=== PATIENT | male | born 1980 | race Two or more races ===

== ENCOUNTER 2024-02-29 09:46 | Day surgery (SDC) | payer BC ==
[2024-02-29] MEDS ORDERED: Propofol 200 MG/20 ML SDV IV ONE (09:47)
[2024-02-29] MEDS ORDERED: Midazolam 1 MG/ML 2 ML SDV IV ONE (09:47)
[2024-02-29] MEDS ORDERED: fentaNYL 100 MCG/2 ML SDV IV ONE (09:47)
[2024-02-29] MEDS ORDERED: Sodium Chloride 0.9% 10 ML Syringe FLUSH PRN (10:04)
[2024-02-29] MEDS: Lactated Ringers 1,000 ML IV SCH (10:20)
== END 2024-02-29 11:11 | disposition home or self-care (01) ==
LOC: FB.SDS 09:46
PROVIDERS: ATTEND Surgery
DX: D64.9 Anemia, unspecified (principal); F10.10 Alcohol abuse, uncomplicated; R11.10 Vomiting, unspecified; I10 Essential (primary) hypertension
CPT/HCPCS: 43235; J2250; J2704; J3010; J7120; 00731